=== PATIENT | female | born 1940 | race Caucasian/White ===

== ENCOUNTER → 2020-02-25 16:12 | Outpatient (ROUT) | payer MEDICARE, SELFPAY ==
[2020-02-25 16:40] LABS: BUN Creatinine Ratio 22.6 (6-22); Blood Urea Nitrogen 21 mg/dL (7-17); Calcium 9.7 mg/dL (8.4-10.2); Carbon Dioxide 30 mmol/L (22-32); Chloride 104 mmol/L (98-107); Glucose 98 mg/dL (80-110); HEMOLYSIS < 15 (0-50); Potassium 4.7 mmol/L (3.4-5.1); Sodium 138 mmol/L (137-145)
[2020-02-25 17:10] LABS: TSH w/ Reflex to FT4 3.77 uIU/mL (0.47-4.68)
[2020-02-25 18:23] LABS: Vitamin D 25 Hydroxy (D3) 53.3 ng/mL (30.0-100.0)
== END ==
PROVIDERS: Visit Provider Internal Medicine
DX: I10 Essential (primary) hypertension (principal); E55.9 Vitamin D deficiency, unspecified; R79.89 Other specified abnormal findings of blood chemistry
CPT/HCPCS: 80048; 82306; 84443

== ENCOUNTER → 2020-08-21 12:22 | Outpatient (CLI) | payer OTHER, SELFPAY ==
--- NOTE | 2020-08-21 12:31 | DI.MG.S_ITS ---
BILATERAL DIGITAL SCREENING MAMMOGRAM 3D/2D WITH CAD: 08/21/2020 CLINICAL: Baseline exam. Routine screening. No prior exams were available for comparison. There are scattered fibroglandular elements in both breasts. Current study was also evaluated with a Computer Aided Detection (CAD) system. There is a 0.4 cm oval equal density focal asymmetry in the right breast at 12 o'clock middle depth. No other significant masses, calcifications, or other findings are seen in either breast. IMPRESSION: INCOMPLETE: NEEDS ADDITIONAL IMAGING EVALUATION The 0.4 cm oval equal density focal asymmetry in the right breast resembles a cyst or a lymph node and is indeterminate. Additional views with possible ultrasound are recommended. This exam was interpreted at Station ID: [id number]. NOTE: For mammograms, a report in lay terms will be sent to the patient. Approximately 15% of breast malignancies will not be visualized mammographically. In the management of a palpable breast mass, a negative mammogram must not discourage biopsy of a clinically suspicious lesion. Electronically Signed By: Gilberto Atkinson M.D. at/:08/21/2020 13:46:39 letter sent: Additional Imaging Needed ACR BI-RADS Category 0: Incomplete 3340F
== END ==
PROVIDERS: PCP Internal Medicine; Referring Provider Internal Medicine; Visit Provider Internal Medicine
DX: Z12.31 Encounter for screening mammogram for malignant neoplasm of breast (principal); Z78.0 Asymptomatic menopausal state
CPT/HCPCS: 77063; 77067; 77080; 77081

== ENCOUNTER → 2020-09-08 13:19 | Outpatient (CLI) | payer OTHER, SELFPAY ==
--- NOTE | 2020-09-08 13:20 | DI.US.S_ITS ---
LIMITED ULTRASOUND OF RIGHT BREAST: 09/08/2020 CLINICAL: Patient returns today to evaluate a focal asymmetry in the right breast. Comparison is made to exams dated: 09/08/2020 mammogram and 08/21/2020 mammogram - [facility]. Color flow and real-time ultrasound of the right breast 12 o'clock region were performed. North scale images of the real-time examination were reviewed. There is a benign 0.4 cm x 0.4 cm x 0.3 cm round cyst in the right breast at 12 o'clock middle depth 4 cm from the nipple. This round cyst displays a well-defined boundary and posterior acoustic enhancement. This correlates with mammography findings. Color flow imaging demonstrates that there is no vascularity present. IMPRESSION: BENIGN There is no sonographic evidence of malignancy. The 0.4 cm round cyst in the right breast is consistent with a simple cyst and is benign. A 1 year screening mammogram is recommended. Exam findings were conveyed to the patient. This exam was interpreted at Station ID: [id number]. Electronically Signed By: Tino Blank M.D. slc/:09/08/2020 16:48:36 letter sent: Normal Exam Ultrasound BI-RADS: 2 Benign
--- NOTE | 2020-09-08 13:20 | DI.MG.S_ITS ---
UNILATERAL RIGHT DIGITAL DIAGNOSTIC MAMMOGRAM 3D/2D WITH ADDITIONAL VIEWS: 09/08/2020 CLINICAL: Additional evaluation requested from prior study. Comparison is made to exam dated: 08/21/2020 [facility]. There are scattered fibroglandular elements in right breast. There is a 0.4 cm oval equal density focal asymmetry in the right breast at 12 o'clock middle depth. No other significant masses or calcifications are seen in the breast. IMPRESSION: INCOMPLETE: NEEDS ADDITIONAL IMAGING EVALUATION The 0.4 cm oval equal density focal asymmetry in the right breast resembles a cyst or a lymph node and is indeterminate. A targeted ultrasound is recommended and will immediately follow. This exam was interpreted at Station ID: [id number]. NOTE: For mammograms, a report in lay terms will be sent to the patient. Approximately 15% of breast malignancies will not be visualized mammographically. In the management of a palpable breast mass, a negative mammogram must not discourage biopsy of a clinically suspicious lesion. Electronically Signed By: Tino Blank M.D. slc/:09/08/2020 14:03:24 ACR BI-RADS Category 0: Incomplete [id number]
== END ==
PROVIDERS: PCP Internal Medicine; Referring Provider Internal Medicine; Visit Provider Internal Medicine
DX: R92.8 Other abnormal and inconclusive findings on diagnostic imaging of breast (principal); N60.01 Solitary cyst of right breast
CPT/HCPCS: 76642; 77065; G0279